=== PATIENT | female | born 1955 | race Caucasian/White ===

== ENCOUNTER 2022-10-23 09:25 | Day surgery (SDC) | payer MEDICARE, MEDICAID ==
[2022-10-23] MEDS ORDERED: Sodium Bicarbonate 2.5 MEQ/5 ML VIAL ONE (09:55)
[2022-10-23] MEDS ORDERED: Lidocaine 1% PF 5 ML VIAL ONE (09:55)
[2022-10-23] MEDS ORDERED: Iopamidol-M 300 61% 15 ML VIAL ONE (12:13)
== END 2022-10-23 11:50 | disposition home or self-care (01) ==
LOC: CSHRAD 09:25
PROVIDERS: ATTEND Neurological Surgery
PROC: B01BYZZ Fluoroscopy of Spinal Cord using Other Contrast (ICD-10-PCS; principal; 2022-10-23)
DX: M54.12 Radiculopathy, cervical region (principal); R55 Syncope and collapse; Z79.899 Other long term (current) drug therapy; Z79.82 Long term (current) use of aspirin; Z88.5 Allergy status to narcotic agent; Z88.2 Allergy status to sulfonamides; Z88.1 Allergy status to other antibiotic agents; Z88.8 Allergy status to other drugs, medicaments and biological substances
CPT/HCPCS: 62302; 62303; 72126; 72129; Q9967